=== PATIENT | female | born 1990 | race Native Hawaiian/Other Pacific Islander ===

== ENCOUNTER 2019-07-09 17:10 | Emergency (ER) | payer OTHER ==
[~2019-07-09] VITALS: Ht 160 cm; Wt 77.1 kg
[2019-07-09 19:19] LABS: PLATELET COUNT 184 K/uL (152-353); POTASSIUM 4.4 mmol/L (3.6-5.2)
[2019-07-09 20:10] VITALS: BP 104/64; TEMP 98.1
== END 2019-07-09 20:10 | disposition home or self-care (01) ==
LOC: ED 17:10
PROVIDERS: Family Medicine
DX: G43.909 Migraine, unspecified, not intractable, without status migrainosus (principal); J30.9 Allergic rhinitis, unspecified; F17.210 Nicotine dependence, cigarettes, uncomplicated
CPT/HCPCS: 36415; 80053; 80307; 81025; 85027; 96372; 99283; J3030